=== PATIENT | female | born 1985 | race Caucasian/White ===

== ENCOUNTER 2019-09-28 08:51 | Inpatient (IN) | payer OTHER ==
[~2019-09-28] VITALS: Ht 167.6 cm; Wt 83.0 kg
[2019-09-28] MEDS ORDERED: LIDOCAINE 2%HCL (LOCAL ANESTH.) INJ 20ML MDV ONE (08:52)
[2019-09-28] MEDS ORDERED: LIDOCAINE 2%HCL (LOCAL ANESTH.) INJ 20ML MDV ID ONE (09:00)
[2019-09-28] MEDS ORDERED: LACTATED RINGER'S 1,000 ML IV SCH ×3 (09:00→20:00)
[2019-09-28] MEDS ORDERED: LACT. RINGERS/OXYTOCIN 20UNITS 1,000 ML IV SCH (09:00)
[2019-09-28] MEDS ORDERED: WITCH HAZEL-GLYCERIN PAD TOP PRN (09:00)
[2019-09-28] MEDS ORDERED: PHISODERM TOP SOLN 240ML BTL TOP PRN (09:00)
[2019-09-28] MEDS ORDERED: PENICILLIN G POT 5MIL/D5 50ML 50 ML IV ONE ×2 (09:00→09:28)
[2019-09-28] MEDS ORDERED: DERMOPLAST 60ML BOTTLE TOP PRN (09:00)
[2019-09-28] MEDS ORDERED: BUTORPHANOL TARTRATE 2 MG/1 ML VIAL ONE (09:54)
[2019-09-28] MEDS ORDERED: PROMETHAZINE HCL 25 MG/ML 1ML ONE (09:55)
[2019-09-28] MEDS ORDERED: PROMETHAZINE HCL 25 MG/ML 1ML IM ONE (10:00)
[2019-09-28] MEDS ORDERED: BUTORPHANOL TARTRATE 2 MG/1 ML VIAL IM ONE (10:00)
[2019-09-28 10:20] LABS: Basophils # (auto) 0.1 uL; Basophils % (auto) 0.5 % (0.0-2.0); Eosinophils # (auto) 0 uL; Eosinophils % (auto) 0.1 % (0.0-7.0); Hemoglobin 13.4 g/dL (12.2-16.2); Lymphocytes # (auto) 1.5 uL; Lymphocytes % (auto) 11.1 % (10.0-50.0); Mean Corpuscular Hemoglobin 29.2 pg (28.0-32.0); Mean Corpuscular Hgb Conc. 31.1 g/dL (32.0-36.0); Mean Corpuscular Volume 93.8 fL (80.0-100.0); Monocytes # (auto) 0.8 uL; Monocytes % (auto) 5.9 % (0.0-12.0); Neutrophils # (auto) 11.3 uL; Neutrophils % (auto) 82.4 % (37.0-80.0); Nucleated Red Blood Cells % 0.1 %; Platelet Count (auto) 282 10^3/uL (140-450); Red Blood Cells 4.58 10^6/uL (4.0-5.20); Red Cell Distribution Width 14.5 % (11.8-14.3); White Blood Cell 13.7 10^3/uL (4.4-10.8)
[2019-09-28 10:22] LABS: INR 0.91 (0.9-1.15); Partial Thromboplastin Time 25.5 sec (23.64-32.05)
[2019-09-28 10:27] LABS: Albumin 2.5 g/dL (3.4-5.0); Calcium 8.9 mg/dL (8.5-10.1); Potassium 3.3 mmol/L (3.5-5.1)
[2019-09-28 10:33] LABS: BUN/Creatinine Ratio 10.5; Bilirubin, Total 0.5 mg/dL (0.2-1.0); Total Protein 6.7 g/dL (6.4-8.2); Uric Acid 4.7 mg/dL (2.6-6.0)
[2019-09-28] MEDS ORDERED: LACTATED RINGER'S 1,000 ML IV ONE (10:33)
[2019-09-28] MEDS ORDERED: ePHEDrine SULFATE 50 MG/ML AMP IV ONE (10:45)
[2019-09-28] MEDS ORDERED: fentaNYL 200mCg/100ml W ROPIVA 100 ML EPI SCH (10:45)
[2019-09-28] MEDS ORDERED: NALOXONE HCL 0.4 MG/ML VIAL IV ONE (10:45)
[2019-09-28] MEDS ORDERED: LIDOCAINE HCL 2 %PF INJ 10ML AMP IJ ONE ×2 (10:45→17:46)
[2019-09-28] MEDS ORDERED: fentaNYL CITRATE 100 MCG/2 ML VL IV ONE (10:45)
[2019-09-28 10:51] LABS: Urine WBC None Seen /hpf (0 - 5)
[2019-09-28 11:24] LABS: Alcohol, Urine < 3.0 mg/dL (0-5); Amphetamine Screen, Urine NEGATIVE (NEGATIVE); Barbiturate Scree,Urine NEGATIVE (NEGATIVE); Benzodiazephine Screen, Urine NEGATIVE (NEGATIVE); Cannabinoid Screen, Urine NEGATIVE (NEGATIVE); Cocaine Screen, Urine NEGATIVE (NEGATIVE); Opiate Scree,Urine NEGATIVE (NEGATIVE); Phencyclidine Screen, Urine NEGATIVE (NEGATIVE)
[2019-09-28 11:39] LABS: Urine Bacteria NONE SEEN /hpf (None Seen); Urine Blood Negative /uL (Negative); Urine Specific Gravity 1.027 (1.001-1.035)
[2019-09-28] MEDS ORDERED: PENICILLIN G POTASSIUM 2,500,000 UNITS in D5W 5% 50 ML IV SCH (13:30)
[2019-09-28] MEDS ORDERED: POTASSIUM CHL 20MEQ/100ML 100 ML IV SCH (13:45)
[2019-09-28] MEDS ORDERED: GENTAMICIN SULFATE 80 MG in D5W 5% 100 ML IV ONE (15:15)
[2019-09-28] MEDS ORDERED: ACETAMINOPHEN 325 MG TAB PO PRN (15:15)
[2019-09-28] MEDS ORDERED: TETRACAINE 1% INJ 2 ML VIAL IJ ONE (17:36)
[2019-09-28] MEDS ORDERED: TERBUTALINE SULFATE 1 MG/ML 1ML VIAL SC ONE ×2 (17:42→17:44)
[2019-09-28] MEDS ORDERED: SODIUM CHLORIDE LOCK 10 ML ONE (17:46)
[2019-09-28] MEDS ORDERED: SODIUM BICARBONATE 8.4 % INJ 50ML VIAL IV ONE (17:46)
[2019-09-28] MEDS ORDERED: MIDAZOLAM HCL 1MG/1ML-2 ML VIAL ONE (17:46)
[2019-09-28] MEDS ORDERED: OXYTOCIN 10 UNIT/ML 10ML VIAL ONE (17:46)
[2019-09-28] MEDS ORDERED: MORPHINE SULF(PF) 0.5MG/ML 10ML VIAL ONE (17:46)
[2019-09-28] MEDS ORDERED: ePHEDrine SULFATE 50 MG/ML AMP ONE (17:46)
[2019-09-28] MEDS ORDERED: fentaNYL CITRATE 100 MCG/2 ML VL ONE (17:47)
[2019-09-28] MEDS ORDERED: ONDANSETRON HCL 4 MG/2 ML VIAL ONE (17:47)
[2019-09-28] MEDS ORDERED: MEPERIDINE HCL (25 MG/ML) 1ML VIAL ONE (18:23)
[2019-09-28] MEDS ORDERED: ceFAZolin 1GM/50ML 50 ML IV SCH (18:45)
[2019-09-28] MEDS ORDERED: ONDANSETRON HCL 4 MG/2 ML VIAL IV PRN ×2 (18:45→19:00)
[2019-09-28] MEDS ORDERED: HYDROmorphone HCL 2 MG/ML VL IV PRN ×2 (18:45→19:00)
[2019-09-28] MEDS ORDERED: METOCLOPRAMIDE HCL 5MG/ml INJ 2ml VIAL IV PRN (19:00)
[2019-09-28] MEDS ORDERED: KETOROLAC TROMETH 30 MG/ML 1ML VIAL IV ONE (19:00)
[2019-09-28] MEDS ORDERED: NALOXONE HCL 0.4 MG/ML VIAL IV PRN (19:00)
[2019-09-28] MEDS ORDERED: MORPHINE SULFATE 4 MG/ML SYR/VIAL IV PRN (19:00)
[2019-09-28] MEDS ORDERED: diphenhdrAMINE HCL 50 MG/1 ML VL IV PRN (19:00)
[2019-09-28] MEDS ORDERED: fentaNYL CITRATE 100 MCG/2 ML VL IV PRN (19:00)
[2019-09-28] MEDS ORDERED: PREN-96 PO (19:04)
[2019-09-28 19:30] VITALS: BP 131/66
--- NOTE | 2019-09-28 19:30 | NUR ---
Post Op for LDRP: Received patient from PACU via bed to room 1930. Patient A/A/Ox4, abdominal binder and bilateral SCD's are in place, IV fluids placed on pump and infusing per order, incisional site dressing clean/dry/intact and Chinchilla Catheter to gravity draining clear yellow urine. Incentive Spirometer at bedside and instruction on proper use with return demonstration done by patient.
[2019-09-28 20:00] VITALS: BP 131/66
--- NOTE | 2019-09-28 20:06 | NUR ---
PHARMACY CALLED 3 TIMES FOR POTASSIUM MED. NO ANSWER
[2019-09-28] MEDS ORDERED: POTASSIUM CHL 20 Meq TABLET PO ONE (20:30)
[2019-09-28 22:00] VITALS: BP 101/65
[2019-09-28] MEDS: ceFAZolin 1GM/50ML 50 ML IV SCH (22:24)
[2019-09-28 23:00] VITALS: BP 110/63
[2019-09-29] VITALS (15 sets, daily range): BP systolic 103–133; BP diastolic 57–83
[2019-09-29] MEDS ORDERED: KETOROLAC TROMETH 30 MG/ML 1ML VIAL IV SCH
--- NOTE | 2019-09-29 02:51 | NUR ---
EPIDURAL CATH REMOVED. TIP IN PLACES. NO SIGN OF REDNESS, SWELLING. PT TOLERATED WELL.
[2019-09-29 07:01] LABS: Basophils # (auto) 0.1 uL; Basophils % (auto) 0.5 % (0.0-2.0); Eosinophils # (auto) 0 uL; Eosinophils % (auto) 0.1 % (0.0-7.0); Hematocrit 33.8 % (36.0-46.0); Hemoglobin 11.2 g/dL (12.2-16.2); Lymphocytes # (auto) 1.7 uL; Lymphocytes % (auto) 11.4 % (10.0-50.0); Mean Corpuscular Hemoglobin 29.5 pg (28.0-32.0); Mean Corpuscular Volume 89.2 fL (80.0-100.0); Monocytes # (auto) 1.3 uL; Monocytes % (auto) 8.5 % (0.0-12.0); Neutrophils # (auto) 12.1 uL; Neutrophils % (auto) 79.5 % (37.0-80.0); Nucleated Red Blood Cells % 0.1 %; Platelet Count (auto) 244 10^3/uL (140-450); Red Blood Cells 3.79 10^6/uL (4.0-5.20); White Blood Cell 15.2 10^3/uL (4.4-10.8)
[2019-09-29] MEDS: ceFAZolin 1GM/50ML 50 ML IV SCH ×2 (08:23→15:03)
--- NOTE | 2019-09-29 09:38 | NUR ---
NOTIFIED DR. LAYNE, STATUS UPDATE GIVEN, TRENDING VITAL SIGNS GIVEN, TRENDING URINE OUTPUTS GIVEN, PTS FUNDUS IS FIRM, 1 BELOW UMBILICUS, SCANT RUBRA BLEEDING NOTED, ABDOMINAL DRESSING CLEAN, DRY, AND INTACT. NO DRAINAGE NOTED. PTS HAS ACTIVE BOWEL SOUNDS X4 QUADRANTS, NO FLATUS YET, PTS ABDOMINAL INCISION PAIN AT THIS TIME IS 5/10, PT DECLINES DILAUDID MEDICATION. ORDERS RECEIVED FROM DR. LAYNE FOR POST OP DAY 1 ORDERS, PT TO GET UP AND AMBULATE, TORADOL IVP 30MG ONCE FOR PAIN, SALINE LOCK IV, ADVANCE PTS DIET TOLERATED ONCE FLATUS PASSED. READ BACK AND VERIFIED ORDERS. WILL CARRY OUT.
[2019-09-29] MEDS ORDERED: HYDROcodone-ACET 5/325MG TAB PO PRN (09:45)
[2019-09-29] MEDS ORDERED: SIMETHICONE 80 MG CHEWABLE TABLET PO PRN (09:45)
[2019-09-29] MEDS ORDERED: KETOROLAC TROMETH 30 MG/ML 1ML VIAL IV ONE (09:45)
--- NOTE | 2019-09-29 11:00 | NUR ---
Szymanski catheter dc'd Order to discontinue szymanski catheter. Szymanski dc'd with clean technique following deflation of balloon. Patient tolerated well with no complaints of pain. Continue care.
[2019-09-29] MEDS: DOCUSATE SOD 100 MG CAP PO SCH ×2 (11:04→22:18)
--- NOTE | 2019-09-29 13:30 | NUR ---
PT UP TO BEDSIDE CHAIR AT THIS TIME, FEET FIRMLY PLANTED ON FLOOR, PTS RESPIRATION ARE EVEN AND NONLABORED, NO DISTRESS NOTED. PT UNABLE TO VOID ST THIS TIME. PT WILL NOTIFY RN WHEN NEEDING TO VOID. WILL CONTINUE TO MONITOR.
--- NOTE | 2019-09-29 15:20 | NUR ---
Ambulation: Patient OOB with standby assistance by RN. Patient ambulated to bathroom with steady gait. Patient able to void 600ML yellow urine without difficulty. [facility] teaching provided with returned demonstration by patient. Clean gown provided and bed linen changed.
--- NOTE | 2019-09-29 15:23 | NUR ---
PT AMBULATING HALLWAY VIA STEADY GAIT ACCOMPANIED BY FOB. FOB PUSHING IN OPEN CRIB, NO DISTRESS NOTED. WILL CONTINUE TO MONITOR.
--- NOTE | 2019-09-29 15:34 | NUR ---
PT BACK IN ROOM 108B, PT SITTING IN BEDSIDE CHAIR AT THIS TIME, FEET FIRMLY PLANTED ON FLOOR, PTS RESPIRATION ARE EVEN AND NONLABORED, NO DISTRESS NOTED. PT WILL NOTIFY RN WHEN VOIDED A SECOND TIME. WILL CONTINUE TO MONITOR.
[2019-09-29] MEDS: HYDROcodone-ACET 5/325MG TAB PO PRN (16:02)
[2019-09-29] MEDS: IBUPROFEN 800 MG TAB PO PRN (20:14)
[2019-09-30 03:00] VITALS: BP 105/57
--- NOTE | 2019-09-30 06:23 | NUR ---
Report received from Evelio Camacho RN on stable pt. Assumed care. Addendum: 09/30/19 at 1317 by Marcella Hinds RN Amended: Links added.
[2019-09-30 07:30] VITALS: BP 115/72
--- NOTE | 2019-09-30 07:30 | NUR ---
Lower abdominal incision to air, well approximated with lamar intact and abdominal binder in place. No redness, drainage, or bleeding noted. Incentive spirometer at bedside, pt educated on use and the importance of ambulation. Pt verbalizes understanding. Addendum: 09/30/19 at 1325 by Marcella Hinds RN Amended: Links added.
[2019-09-30] MEDS: HYDROcodone-ACET 5/325MG TAB PO PRN ×3 (07:34→22:33)
[2019-09-30] MEDS: DOCUSATE SOD 100 MG CAP PO SCH ×2 (10:12→22:32)
[2019-09-30] MEDS: IBUPROFEN 800 MG TAB PO PRN ×2 (10:13→20:48)
[2019-09-30 10:40] VITALS: BP 133/68
[2019-09-30 10:49] LABS: RPR Non Reactive (Non Reactive)
--- NOTE | 2019-09-30 12:20 | NUR ---
received report from florence espinosa rn and [facility].
--- NOTE | 2019-09-30 12:31 | NUR ---
Report given to Tito ePpper RN on stable pt. Relinquished care.
[2019-09-30 15:08] VITALS: BP 112/68
[2019-09-30 19:00] VITALS: BP 109/71
[2019-09-30 23:00] VITALS: BP 112/64
[2019-10-01 02:53] VITALS: BP 123/64
--- NOTE | 2019-10-01 06:08 | NUR ---
Report received from Arthur Lyn RN on stable pt. Assumed care. Addendum: 10/01/19 at 0845 by Marcella Hinds RN Amended: Links added.
[2019-10-01 06:35] VITALS: BP 126/70
--- NOTE | 2019-10-01 06:35 | NUR ---
Lower abdominal incision to air, well approximated with lamar intact and abdominal binder in place. No redness, drainage, or bleeding noted. Incentive spirometer at bedside, pt educated on use and the importance of ambulation. Pt verbalizes understanding. Pt states that she has not had a BM since Sunday, but is passing gas. Pt refuses suppository and states that this is normal for her and that she won't be able to go to the bathroom here anyway.
--- NOTE | 2019-10-01 06:35 | NUR ---
IV removal 20g IV DC'd from left hand with sterile technique, catheter fully intact. Pressure dressing applied to site. Patient tolerated procedure well.
--- NOTE | 2019-10-01 07:15 | NUR ---
Evelio KLEIN informed that pt has not had a bwoel movement since 09/27. Pt refuses suppository and states that this is normal for her and that she won't be able to go to the bathroom here anyway.
--- NOTE | 2019-10-01 07:45 | NUR ---
Evelio Don CNM at bedside, lamar removed and steri strips placed.
--- NOTE | 2019-10-01 08:15 | NUR ---
Discharge: Discharge instructions given as ordered. Pt encouraged to follow up with [facility] as instructed. All questions and concerns addressed. Patient verbalized understanding. Medication reconciliation completed and copy given to patient. All required/requested vaccines given and copies of vaccinations given to patient. Patient encouraged to prepare to depart unit.
--- NOTE | 2019-10-01 08:47 | NUR ---
Discharge: Patient ambulated to vehicle with steady gait, with all personal belongings, accompanied by staff and family member. No distress noted at time of departure, no adverse changes in status since initial assessment.
== END 2019-10-01 08:47 | disposition home or self-care (01) | DRG 788 ==
LOC: LDRP 08:51
PROVIDERS: ADMIT Specialist; ATTEND Specialist
PROC: 10D00Z1 Extraction of Products of Conception, Low, Open Approach (ICD-10-PCS; principal; 2019-09-28 17:51)
DX: O99.824 Streptococcus B carrier state complicating childbirth (principal); O69.81X0 Labor and delivery complicated by cord around neck, without compression, not applicable or unspecified; Z3A.38 38 weeks gestation of pregnancy; Z37.0 Single live birth
CPT/HCPCS: 36415; 51702; 59025; 62282; 80053; 80307; 81001; 84112; 84550; 85025; 85610; 85730; 86592; 86703; 86762; 86850; 86900; 86901; 87340; 94760; 94762; 96361; 96366; 96374; 96375; G0378; J0690; J1885; J2250; J2405; J2540; J2590; J7060

== ENCOUNTER 2024-06-04 14:16 | Emergency (ER) | payer OTHER ==
[~2024-06-04] VITALS: Ht 165.1 cm; Wt 75.3 kg
[~2024-06-04 14:16] MED LIST: PREN-96 PO
[2024-06-04 14:18] VITALS: BP 132/82; RESP 16; O2SAT 96
[2024-06-04 14:35] LABS: Basophils # (auto) 0.1 10 ^3/uL (0-0.2); Basophils % (auto) 0.8 % (0.0-2.0); Eosinophils # (auto) 0.1 10 ^3/uL (0-0.8); Eosinophils % (auto) 0.8 % (0.0-7.0); Hematocrit 42.4 % (36.0-46.0); Hemoglobin 14.7 g/dL (12.2-16.2); Lymphocytes # (auto) 2.1 10 ^3/uL (0.4-5.4); Lymphocytes % (auto) 25.7 % (10.0-50.0); Mean Corpuscular Hemoglobin 31.8 pg (28.0-32.0); Mean Corpuscular Hgb Conc. 34.6 g/dL (32.0-36.0); Mean Corpuscular Volume 91.9 fL (80.0-100.0); Monocytes # (auto) 0.7 10 ^3/uL (0-1.3); Monocytes % (auto) 8.1 % (0.0-12.0); Neutrophils # (auto) 5.4 10 ^3/uL (1.6-8.6); Neutrophils % (auto) 64.6 % (37.0-80.0); Nucleated Red Blood Cells % 0.2 %; Platelet Count (auto) 255 10^3/uL (140-450); Red Blood Cells 4.61 10^6/uL (4.0-5.20); Red Cell Distribution Width 12.9 % (11.8-14.3); White Blood Cell 8.3 10^3/uL (4.4-10.8)
[2024-06-04 14:59] LABS: Alanine Aminotransferase 39 U/L (7-40); Albumin 4.7 g/dL (3.2-4.8); Alkaline Phosphatase 88 U/L (46-116); Anion Gap 8 (5-15); Aspartate Aminotransferase 24 U/L (13-40); BUN/Creatinine Ratio 11.4 (10.0-20.0); Bilirubin, Total 0.4 mg/dL (0.2-1.0); Blood Urea Nitrogen 8 mg/dL (9-23); Calcium 9.5 mg/dL (8.7-10.4); Carbon Dioxide 26 mmol/L (20-30); Chloride 107 mmol/L (98-107); Glucose 94 mg/dL (74-106); Potassium 3.9 mmol/L (3.5-5.1); Sodium 141 mmol/L (136-145); Total Protein 7.1 g/dL (5.7-8.2)
[2024-06-04 15:25] VITALS: PULSE 87
== END 2024-06-04 18:58 | disposition home or self-care (01) ==
LOC: ER 14:16
DX: R07.89 Other chest pain (principal); R10.2 Pelvic and perineal pain; E78.5 Hyperlipidemia, unspecified; Z98.51 Tubal ligation status; Z98.890 Other specified postprocedural states; Z79.899 Other long term (current) drug therapy
CPT/HCPCS: 36415; 71045; 80053; 84484; 84702; 85025; 85379; 93005